=== PATIENT | male | born 1985 | race Caucasian/White ===

== ENCOUNTER 2016-07-28 15:57 | Emergency (ER) | payer SELFPAY ==
[~2016-07-28] VITALS: Ht 172.7 cm; Wt 85.0 kg
[~2016-07-28 15:57] MED LIST: ACET325T11 PO; PROC10TA4 PO; TRAM50 PO
[2016-07-28 16:00] VITALS: BP 141/93; PULSE 92; RESP 12; TEMP 97.7; O2SAT 99
--- NOTE | 2016-07-28 18:33 | PD ---
HPI Chief Complaint: Skin Problem Time Seen by Provider: 18:32 Travel History International Travel<30 days: No Contact w/Intl Traveler<30days: No Traveled to known affect area: No History of Present Illness HPI 30-year-old male presents to the emergency department for evaluation of what he believes maybe a staph infection. Patient states that his girlfriend shaved his pubic care with his friends razor. He states he then developed a vesicular rash that is now crusted. It bourgeois and is very painful. He reports no fever or chills. Would like reassurance that this is not an STD. PFSH Past Medical History Medical History: Denies Significant Hx Diminished Hearing: No Headaches: Yes Musculoskeletal: Yes (scoliosis) Neurologic: Yes (migraines) Migraines: Yes Social History Alcohol Use: Yes (X1 PER MONTH) Tobacco Use: Yes (1 PPD/STARTED AGE 14) Substance Use: No (denies) Allergies-Medications (Allergen,Severity, Reaction): Coded Allergies: Penicillin (Verified Allergy, Unknown, 09/11/13) Reported Meds & Prescriptions Reported Meds & Active Scripts Active Keflex (Cephalexin) 500 Mg Cap 500 Mg PO Q6H 5 Days Bactrim DS (Sulfamethoxazole-Trimethoprim) 800-160 Mg Tab 1 Tab PO BID Acyclovir 800 Mg Tab 800 Mg PO 5 TIMES A DAY 7 Days Compazine (Prochlorperazine Maleate) 10 Mg Tab 10 Mg PO Q6 PRN TAKE WITH BENADRYL Ultram (Tramadol HCl) 50 Mg Tab 50 Mg PO Q6 5 Days FOR PAIN Reported Tylenol 325 Mg325 Mg 325 Mg Tab 325 Mg PO Q4H PRN Review of Systems Except as stated in HPI: all other systems reviewed are Neg Physical Exam Narrative GENERAL: Well-nourished, well-developed patient, in no acute distress SKIN: Warm and dry. HEAD: Normocephalic. EYES: No scleral icterus. No injection or drainage. NECK: Supple, trachea midline. No JVD or lymphadenopathy. CARDIOVASCULAR: Regular rate and rhythm without murmurs, gallops, or rubs. RESPIRATORY: Breath sounds equal bilaterally. No accessory muscle use. GASTROINTESTINAL: Abdomen soft, non-tender, nondistended. GENITOURINARY: Uncircumcised. There are subcentimeter ulcerative like lesions at the base of the penis extending onto the pubic area superior to the penis shaft. There are some vesicles that are clustered. There are some scabbed lesions. There is also some erythema associated with the base of everything. Testes descended bilaterally without evidence of rotation. No lesions or erythema. No urethral discharge. MUSCULOSKELETAL: No cyanosis, or edema. BACK: Nontender without obvious deformity. No CVA tenderness. Data Data Last Documented VS Vital Signs Date Time Temp Pulse Resp B/P Pulse Ox O2 Delivery O2 Flow Rate FiO2 07/28/16 16:00 97.7 92 12 141/93 99 Room Air Orders Herpes Simplex Virus Culture (07/28/16 18:35) MDM Medical Decision Making Medical Screen Exam Complete: Yes Emergency Medical Condition: Yes Medical Record Reviewed: Yes Differential Diagnosis Folliculitis versus herpes versus cellulitis versus contact dermatitis Narrative Course 30-year-old male presents to emergency room in for evaluation of a rash superior to his penis and on the base of the shaft. Findings and history are consistent with a folliculitis however. Is concerning for herpes. Culture for herpes is obtained. Patient will be started on acyclovir as well as antibiotics. He is encouraged follow-up with a primary care provider, avoid sexual activity in telemetry lesions resolve, and return immediately with any acute worsening symptoms Diagnosis Primary Impression: Folliculitis Referrals: Primary Care Physician Patient Instructions: Folliculitis (ED), General Instructions Departure Forms: Tests/Procedures, Work Release Enter return to work date: Jul 30, 2016 Additional Instructions: Keep the area clean and dry Do Not scratch at the area Safe sex is advised. Use condom prophylaxis Calamine lotion to the affected area Avoid restrictive clothing Return immediately to the emergency department with any acute worsening of symptoms Med/Other Pt SpecificInfo: Prescription(s) given Scripts Cephalexin (Keflex)500 Mg Sdx151 Mg PO Q6H 5 Days Ref 0 Prov:Amaris Knapp 07/28/16 Sulfamethoxazole-Trimethoprim (Bactrim DS)800-160 Mg Tab1 Tab PO BID #20 TAB Ref 0 Prov:Amaris Knapp 07/28/16 Acyclovir 800 Mg Paw121 Mg PO 5 TIMES A DAY 7 Days Ref 0 Prov:Amaris Knapp 07/28/16 Disposition: 01 DISCHARGE HOME Condition: Stable Amaris Knapp Jul 28, 2016 18:33
[2016-07-28] MEDS ORDERED: ACYC800T PO (18:38)
[2016-07-28] MEDS ORDERED: BACT800T5 PO (18:38)
[2016-07-28] MEDS ORDERED: CEPH-460 PO (18:38)
== END 2016-07-28 18:52 | disposition home or self-care (01) ==
LOC: NETRI 15:57
DX: L73.9 Follicular disorder, unspecified (principal); B00.9 Herpesviral infection, unspecified; F17.210 Nicotine dependence, cigarettes, uncomplicated
CPT/HCPCS: 87255; 99283